=== PATIENT | male | born 1965 | race Caucasian/White ===

== ENCOUNTER 2018-01-13 20:30 | Emergency (ER) | payer MEDICARE ==
[~2018-01-13] VITALS: Ht 198.1 cm; Wt 91.7 kg
[~2018-01-13 20:30] MED LIST: TRAM50 PO; XARE10TA PO
[2018-01-13 20:34] VITALS: BP 159/72; PULSE 70; RESP 18; TEMP 98.4; O2SAT 96
[2018-01-13] MEDS ORDERED: XARE20TA PO (20:43)
--- NOTE | 2018-01-13 21:09 | PD ---
HPI Chief Complaint: Injury Time Seen by Provider: 21:00 Travel History International Travel<30 days: No Contact w/Intl Traveler<30days: No Traveled to known affect area: No History of Present Illness HPI Patient is a 52-year-old male who presents the emergency room with complaints of right-sided elbow pain. Patient reports that he went outside last night in the dark, reports that he tripped over a chair and landed on his right elbow. Patient denies any trauma to the head or neck, denies any loss of consciousness. Patient reports that he is right-hand dominant and has pain to his right elbow. PFSH Past Medical History Hx Anticoagulant Therapy: Yes (xarelto) Blood Disorders: No Heart Rhythm Problems: Yes Cardiovascular Problems: Yes (Pacemaker) Cerebrovascular Accident: No Diminished Hearing: No Genitourinary: No Hypertension: Yes Immune Disorder: No Musculoskeletal: No Neurologic: No Reproductive: No Respiratory: No Immunizations Current: Yes Tetanus Vaccination: < 5 Years Influenza Vaccination: No Past Surgical History Abdominal Surgery: No Cardiac Surgery: Yes (PACER INSERTION) Ear Surgery: No Endocrine Surgery: No Eye Surgery: No Genitourinary Surgery: No Gynecologic Surgery: No Oral Surgery: No Pacemaker: Yes Thoracic Surgery: No Other Surgery: Yes (PACEMAKER) Social History Alcohol Use: Yes (SOCIAL) Tobacco Use: Yes (1 PPD) Substance Use: No Allergies-Medications (Allergen,Severity, Reaction): Coded Allergies: chlorpromazine (Verified Allergy, Severe, 01/13/18) haloperidol (Verified Allergy, Severe, 01/13/18) Reported Meds & Prescriptions Reported Meds & Active Scripts Active Reported Xarelto (Rivaroxaban) 20 Mg Tab 20 Mg PO DAILY Review of Systems General / Constitutional: No: Fever Eyes: No: Visual changes HENT: No: Headaches Cardiovascular: No: Chest Pain or Discomfort Respiratory: No: Shortness of Breath Gastrointestinal: No: Abdominal Pain Genitourinary: No: Dysuria Musculoskeletal: Positive: Limited ROM, Pain (Right elbow) Skin: No Rash Neurologic: No: Weakness Psychiatric: No: Depression Endocrine: No: Polydipsia Hematologic/Lymphatic: No: Easy Bruising Physical Exam Narrative GENERAL: Well-nourished, well-developed patient. SKIN: Focused skin assessment warm/dry. HEAD: Normocephalic. EYES: No scleral icterus. No injection or drainage. NECK: Supple, trachea midline. No JVD or lymphadenopathy. CARDIOVASCULAR: Regular rate and rhythm without murmurs, gallops, or rubs. RESPIRATORY: Breath sounds equal bilaterally. No accessory muscle use. GASTROINTESTINAL: Abdomen soft, non-tender, nondistended. MUSCULOSKELETAL: No cyanosis, patient with good range of motion to the right shoulder, right elbow as well as right wrist, he does have some swelling and point tenderness to his right elbow, there is no open fracture, pulses intact, neurovascular intact. Left upper extremity: Normal exam BACK: Nontender without obvious deformity. No CVA tenderness. Data Data Last Documented VS Vital Signs Date Time Temp Pulse Resp B/P (MAP) Pulse Ox O2 Delivery O2 Flow Rate FiO2 01/13/18 22:33 16 01/13/18 20:34 98.4 70 159/72 (101) 96 Orders Orders Elbow, Complete (4 Vws) (01/13/18 ) Ice/Cold Pack (01/13/18 21:02) Ibuprofen (Motrin) (01/13/18 21:15) Ed Discharge Order (01/13/18 22:52) MDM Medical Decision Making Medical Screen Exam Complete: Yes Emergency Medical Condition: Yes Medical Record Reviewed: Yes Interpretation(s) Vital Signs Date Time Temp Pulse Resp B/P (MAP) Pulse Ox O2 Delivery O2 Flow Rate FiO2 01/13/18 20:34 98.4 70 18 159/72 (101) 96 Differential Diagnosis Elbow fracture, elbow sprain Narrative Course Patient was given ice pack as well as ibuprofen for pain. An x-ray of the elbow was performed, Last Impressions Elbow X-Ray 01/13/18 0000 Signed Impressions: Service Date/Time: December 21:15 - CONCLUSION: The acute abnormality is not seen. Theodore Vega MD xray of elbow with no acute abnormalities, there is an olecranon spur with minimal hypertrophic change at the medial radial head region. Elbow xray reviewed with patient, he will follow up with ortho as needed. Diagnosis Primary Impression: Sprain of elbow, right Qualified Codes: S53.401A - Unspecified sprain of right elbow, initial encounter Patient Instructions: General Instructions Additional Instructions: Please provide patient with a copy of his xray at discharge Please follow up with your primary care doctor in 2-3 days Return to the ER if symptoms worsen or progress Return to the ER as needed Disposition: 01 DISCHARGE HOME Condition: Stable Mona Pan DO January 13, 2018 21:08
[2018-01-13] MEDS ORDERED: IBUPROFEN 600 MG TAB PO ONE (21:15)
[2018-01-13 22:33] VITALS: RESP 16
--- NOTE | 2018-01-13 22:34 | RADRPT ---
EXAM DATE/TIME: 01/13/2018 21:15 [facility] COMPARISON: No previous studies available for comparison. INDICATIONS : Fall last night. Pain posterior aspect. MEDICAL HISTORY : None. SURGICAL HISTORY : Pacemaker. ENCOUNTER: Initial ACUITY: 1 day PAIN SCORE: 7/10 LOCATION: Right Elbow FINDINGS: Multiple view examination of the right elbow demonstrates no soft tissue swelling, joint effusion, or fracture. There is an olecranon spur. There appears be some minimal hypertrophic change at the medi al radial head region. The osseous structures are in normal alignment. Bony mineralization is normal . CONCLUSION: The acute abnormality is not seen. Theodore Vega MD on January 13, 2018 at 22:31 Board Certified Radiologist. This report was verified electronically.
== END 2018-01-13 22:57 | disposition home or self-care (01) ==
LOC: PHEFT 20:30
DX: S53.401A Unspecified sprain of right elbow, initial encounter (principal); W18.09XA Striking against other object with subsequent fall, initial encounter; I10 Essential (primary) hypertension; F17.200 Nicotine dependence, unspecified, uncomplicated
CPT/HCPCS: 73080; 99283